=== PATIENT | female | born 1970 | race Caucasian/White ===

== ENCOUNTER 2023-10-02 09:59 | Emergency (ER) | payer OTHER, SELFPAY ==
[2023-10-02 10:00] VITALS: BP 145/81
[2023-10-02 10:29] LABS: Urine Albumin Negative (Neg - Trace); Urine Bilirubin Negative (Negative); Urine Character Clear (Clear); Urine Color Yellow; Urine Glucose Negative (Negative); Urine Ketone Negative (Negative); Urine Leukocyte Negative (Negative); Urine Nitrite Negative (Negative); Urine Occult Blood Trace (Negative); Urine Specific Gravity 1.005 (<1.030); Urine Urobilinogen Negative (Neg - 1+)
[2023-10-02 10:40] LABS: Urine Squamous Cell >30 /LPF (Few)
[2023-10-02 10:41] LABS: Urine Bacteria Few (Negative); Urine White Cell 0-2 /HPF (0-5)
--- NOTE | 2023-10-02 11:17 | ED.GENMED ---
History of Present Illness
General
Chief Complaint: Urinary Symptoms
Source: patient
Exam Limitations: none
Time Seen by Provider: 10/02/23 11:09
Travel History
Have you had any contact with someone who has COVID-19?: No
Do you have any symptoms of coronavirus? Fever > 100 degrees, chills, cough, shortness of breath, sore throat, loss of taste or smell, muscle aches, or headache?: No
History of Present Illness
History of Present Illness:
53-year-old female presents with persistent urinary symptoms since 5 days ago now associated with aches fatigue intermittent chills. She notes bilateral comfort and lower abdominal discomfort. She has remote history of kidney infection requiring
IV antibiotics. She typically healthy otherwise. She denies any visible blood in the urine. No history of kidney stone. No other complaints at this time
Phy Exam
Physical Exam
Physical Exam:
General: Well-appearing female no acute respiratory distress
HEENT: Normocephalic atraumatic
Heart: Regular rate and rhythm no murmurs
Lungs: Clear to auscultation bilaterally no wheezing
Abdomen is soft mildly tender to the suprapubic region and lower quadrants bilaterally. There is also mild costovertebral angle tenderness bilaterally
Extremities: No cyanosis
Course
Orders/Labs/Results
Orders:
Orders
10/02/23 10:16
Urinalysis Reflex To Culture Urgent
Date Specimen was Collected: 10/02/23
Time Specimen was Collected: 10:07
Urine Microscopic Reflex Cult Urgent
10/02/23 11:16
CT Abd/pelvis W Iv Cont Urgent
Comment:
Reason For Exam: flank pain, urinary symptoms, fever
10/02/23 11:29
COVID-19 Antigen Urgent
Source: Nasal Swab
Complete Blood Count/With Diff Urgent
Comprehensive Metabolic Panel Urgent
Blood Culture Q30M
AZAR Source: Blood/Venous
Specimen Description:
Blood Culture Q30M
AZAR Source: Blood/Venous
Specimen Description:
Abnormal Lab Results
10/02/23 10/02/23
10:16 11:29
MCH 33.1 H pg
(27.0-31.0)
Ur Occult Blood Reflex Trace A
(Negative)
Urine RBC 7-10 A /HPF
(0-2)
Urine Bacteria (Reflex) Few A
(Negative)
10/02/23 11:29
10/02/23 11:29
Vital Signs
Initial and Last Documented VS:
Initial Vital Signs
Temp Pulse Resp BP Pulse Ox
98.1 F 63 18 145/81 95
10/02/23 10:00 10/02/23 10:00 10/02/23 10:00 10/02/23 10:00 10/02/23 10:00
Last Documented Vital Signs
Temp Pulse Resp BP Pulse Ox
98.1 F 63 18 145/81 95
10/02/23 10:00 10/02/23 10:00 10/02/23 10:00 10/02/23 10:00 10/02/23 10:00
MDM/Problems Addressed
Differential Diagnosis Includes:
Urinary symptoms with lower abdominal and flank pain. Consider UTI versus pyelonephritis versus diverticulitis. Will check labs COVID test given the aches and fever. Blood cultures and CT
*Critical Care Note
Total Time (30-74mins, 75-104mins- exclusive of procedures): Not Applicable
Update Note
Update Note:
CT negative for acute finding. Labs reviewed without finding. COVID-negative. Patient still has urinary symptoms. Suspect possible UTI. Will switch from Macrobid to cefdinir. Stable for discharge. No indication for admission
ED Attending Note
-
Portions of this chart may have been created with voice recognition software.� Occasional wrong word or��sound alike� substitutions may have occurred due to the inherent limitations of voice recognition software.
Discharge Plan
Departure
Patient Disposition: Home (Routine Discharge)
Date of Disposition: 10/02/23
Time of Disposition: 13:48
Patient with high blood pressure during this ER visit?: No
Discharge Problem:
UTI (urinary tract infection)
Instructions: Urinary Tract Infection, Adult (DC)
Prescriptions:
New
cefdinir 300 mg capsule
300 mg PO BID Qty: 14 0RF
No Action
meclizine 25 mg tablet
25 mg PO TID PRN (Reason: dizziness) Qty: 10 0RF
Activity Restrictions/Additional Instructions:
Please continue to hydrate at home. Take antibiotics as directed. Return for worsening symptoms otherwise follow-up with family doctor
Interventions
Interventions:
*Risk Screen - Suicide Last Done: 10/02/23 11:31
*General Assessment Last Done: 10/02/23 11:31
*Neglect/Abuse Screening Last Done: 10/02/23 11:31
ED- Fall Risk Assessment Last Done: 10/02/23 12:07
*ED COVID-19 Vaccine History Last Done: 10/02/23 11:31
ED-Female Genitourinary Assessment Last Done: 10/02/23 11:31
Discharge Date and Time
Print Language: PRYDEINIG
[2023-10-02 11:49] LABS: % Basophils 0.7 % (0-2); % Immature Granulocytes 0.3 % (0-0.5); % Lymphocytes 23.2 % (20.5-51.1); % Monocytes 5.2 % (1.7-9.3); % Neutrophils 68.6 % (42.2-75.2); Absolute Basophils 0.1 10^3/uL (0-0.2); Absolute Eosinophils 0.2 10^3/uL (0-0.7); Absolute Lymphocytes 1.8 10^3/uL (1.2-3.4); Absolute Monocytes 0.4 10^3/uL (0.1-0.6); Absolute Neutrophils 5.3 10^3/uL (1.4-6.5); Hematocrit 44.8 % (37.0-47.0); Hemoglobin 15.6 g/dL (12.0-16.0); Mean Corp Hgb Conc. 34.8 g/dL (33.0-37.0); Mean Corpuscular Hgb 33.1 pg (27.0-31.0); Mean Corpuscular Volume 95.1 fL (81.0-99.0); Mean Platelet Volume 9.4 fL (7.4-10.4); Nucleated Red Blood Cells % 0 %; Platelet Count 299 10^3/uL (130-400); Red Blood Cell Count 4.71 10^6/uL (4.20-5.40); White Blood Cell Count 7.7 10^3/uL (4.8-10.8)
[2023-10-02 12:01] LABS: ALT (SGPT) 18 U/L (0-35); AST (SGOT) 19 U/L (14-36); Alkaline Phosphatase 97 U/L (38-126); Blood Urea Nitrogen 17 mg/dl (7-17); Calcium 9.8 mg/dl (8.4-10.2); Carbon Dioxide 24 mmol/L (22-30); Chloride 107 mmol/L (98-107); Glucose 94 mg/dl (70-99); Potassium 4.5 mmol/L (3.5-5.1); Sodium 136 mmol/L (135-145); Total Bilirubin 0.4 mg/dl (0.2-1.3); Total Protein 7.1 g/dl (6.3-8.2); eGFR > 60.00
[2023-10-02 12:14] LABS: COVID-19 Antigen Negative (Negative)
[2023-10-02 14:00] VITALS: BP 141/72
== END 2023-10-02 14:07 | disposition home or self-care (01) ==
LOC: EMR 09:59
PROVIDERS: Physician Assistant; EMERGENCY PHYSICIAN Emergency Medicine
DX: N39.0 Urinary tract infection, site not specified (principal); Z87.440 Personal history of urinary (tract) infections
CPT/HCPCS: 99283; 74177; 80053; 81003; 81015; 85025; 87040; 87811; Q9967

== ENCOUNTER → 2023-11-23 16:33 | Outpatient (REF) | payer OTHER, SELFPAY | LOC: WDC 16:33 | PROVIDERS: ATTENDING PHYSICIAN Nurse Practitioner Family | DX: Z12.31 Encounter for screening mammogram for malignant neoplasm of breast (principal) | CPT/HCPCS: 77063; 77067 ==

== ENCOUNTER → 2024-12-14 16:32 | Outpatient (REF) | payer OTHER, SELFPAY | LOC: WDC 16:32 | PROVIDERS: ATTENDING PHYSICIAN Nurse Practitioner Family | DX: Z12.31 Encounter for screening mammogram for malignant neoplasm of breast (principal) | CPT/HCPCS: 77063; 77067 ==

== ENCOUNTER 2025-01-10 12:09 | Emergency (ER) | payer OTHER, SELFPAY ==
[2025-01-10 12:21] VITALS: BP 155/91
[2025-01-10 12:49] LABS: Hematocrit 44.8 % (37.0-47.0); Hemoglobin 15.3 g/dL (12.0-16.0); Mean Corp Hgb Conc. 34.2 g/dL (33.0-37.0); Mean Corpuscular Volume 93.7 fL (81.0-99.0); Nucleated Red Blood Cells % 0 %; Platelet Count 275 10^3/uL (130-400); Red Cell Dist. Width 13.5 % (11.5-14.5)
[2025-01-10 12:59] LABS: ALT (SGPT) 16 U/L (0-35); AST (SGOT) 17 U/L (14-36); Albumin 4.2 g/dl (3.5-5.0); Alkaline Phosphatase 78 U/L (38-126); Blood Urea Nitrogen 18 mg/dl (7-17); Calcium 9.7 mg/dl (8.4-10.2); Carbon Dioxide 27 mmol/L (22-30); Chloride 106 mmol/L (98-107); Glucose 103 mg/dl (70-99); Potassium 4.5 mmol/L (3.5-5.1); Sodium 136 mmol/L (135-145); Total Protein 7.3 g/dl (6.3-8.2); eGFR > 60.00
[2025-01-10 16:17] VITALS: BP 144/69
--- NOTE | 2025-01-10 16:22 | ED.GENMED ---
History of Present Illness
General
Chief Complaint: Heart Rate Problem
Time Seen by Provider: 01/10/25 16:09
History of Present Illness
History of Present Illness:
TIME OF INITIAL EVALUATION
- 4:20 PM
REVIEW OF OLD RECORDS
- The patient has a history of GERD, anxiety. I reviewed records, the patient was seen with UTI 1 year ago.
Note:
CHIEF COMPLAINT(S)
Palpitations and chest and forehead tightness.
HISTORY OF PRESENT ILLNESS
The patient is a 54-year-old female who presented with complaints of palpitations, characterized as a pounding sensation in her chest, which began last night. This was not accompanied by an increase in heart rate. This morning, at approximately
10:30 AM, the patient experienced tightening in the forehead and chest while at work. She reports the symptoms have mildly improved but still experiences persistent head tightness and a slight headache. She describes the palpitations as a 'constant
fluttering' in her heart. The patient noted a medication adjustment as she was advised by her pharmacist to take her medications, amitriptyline and sertraline, at different times rather than concurrently as she had been doing for over 20 years. She
implemented this change on , with the onset of symptoms starting on Thursday.
SOCIAL HISTORY
The patient has been managing medication changes, which have potentially impacted her symptoms.
MEDICATIONS
Amitriptyline and sertraline, recently adjusted to be taken separately per pharmacy advice.
REVIEW OF SYSTEMS
- Cardiovascular: Palpitations described as a pounding sensation.
- Neurological: Tightness in forehead, slight headache reported.
- Chest: Tightness in the chest noted today.
PHYSICAL EXAM
General: Alert, no acute distress.
Skin: Warm, dry.
Head: Normocephalic, atraumatic.
Neck: Supple, trachea midline.
Eye Ears, Nose, Mouth and Throat: Oral mucosa moist.
Cardiovascular: Normal peripheral perfusion, No edema. Heart rate observed at 56-60 bpm, described as a normal rhythm.
Respiratory: Respirations are non-labored.
Gastrointestinal: Abdomen nondistended.
Back: Normal range of motion, Normal alignment.
Musculoskeletal: Normal range of motion, normal strength.
Neurological: Alert and oriented to person, place, time, and situation, No focal neurological deficit observed.
Psychiatric: Cooperative, appropriate mood & affect.
PLAN
- Review blood work results and evaluation.
- Consider potential medication interaction between amitriptyline and sertraline.
- Monitor ECG findings, which currently appear normal.
- Follow-up consultation for further evaluation if symptoms persist.
DIFFERENTIAL DIAGNOSIS
The Differential Diagnosis includes, in no particular order and is not limited to:
1. Medication Interaction
2. Anxiety
3. Sinus Tachycardia
4. Hypertension
5. Hyperthyroidism
6. Anemia
7. Electrolyte Imbalance
8. Atrial Fibrillation
9. Coronary Artery Disease
10. Mitral Valve Prolapse
RADIOLOGY
- No clear indication for imaging at this time. The patient has a normal neurologic examination.
EKG
- Sinus 61, normal axis, normal intervals.
LABS
- CBC and chemistries unremarkable, TSH normal. Troponin unremarkable.
UPDATE
-SUMMARY OF ENCOUNTER
The patient, a 54-year-old female, presented to the emergency department experiencing palpitations, described as a constant fluttering, along with tightness in the forehead and chest. The symptoms emerged shortly after a modification in her
medication regimen of amitriptyline and sertraline, which were advised to be taken separately. The patient underwent blood work and ECG, both of which returned normal results, ruling out cardiovascular events such as a heart attack. Her blood
pressure was noted to be slightly elevated but not significantly problematic. Given these findings, it was suggested that the medication adjustment might be re-evaluated, potentially returning to the previous concurrent dosing schedule.
DISPOSITION
Discharge.
ASSESSMENT
The symptoms may be attributed to medication interaction following the adjustment of her amitriptyline and sertraline dosing schedule.
PLAN
The patient is advised to consider switching back to taking amitriptyline and sertraline together, as previously done, and follow up with her primary care physician.
FOLLOW-UP INSTRUCTIONS
The patient has a follow-up appointment scheduled with her primary doctor tomorrow.
MEDICAL DECISION MAKING
-Complexity of Data Reviewed: Chronic conditions affecting care from past medication management. Differential Diagnosis includes:
1. Medication Interaction
2. Anxiety
3. Sinus Tachycardia
4. Hypertension
5. Hyperthyroidism
6. Anemia
7. Electrolyte Imbalance
8. Atrial Fibrillation
9. Coronary Artery Disease
10. Mitral Valve Prolapse
-Data:
Category 1
Non-emergency department records reviewed, if applicable. External record reviewed: I reviewed the patients outpatient pharmacy records.
Category 2
My independent interpretation of ECG was normal.
-Risk:
Consideration of Admission/Observation: Escalation of care including admission/observation was considered given the complexity and risk of the patients presenting complaint, exam findings, and/or their underlying comorbidities. However, ultimately I
feel the patient is safe for outpatient management with close follow-up. Reasoning: Work-up reassuring, does not reveal any acute life/organ-threatening processes, patients symptoms well controlled upon reevaluation, reexamination is reassuring,
vitals are stable, patient agreeable with discharge, reliable for follow-up.
Care significantly affected by Social Determinants of Health: Medication changes with potential impacts noted in the patients social history.
DIAGNOSIS
Chest discomfort/palpitations
Possible medication interaction side effects
Phy Exam
Physical Exam
Physical Exam:
See HPI
Course
Orders/Labs/Results
Orders:
Orders
01/10/25 12:10
ECG [Electrocardiogram (*1)] Urgent
Reason for Study: Palpitations
01/10/25 12:11
EKG- Treatment ONCE
01/10/25 12:34
CMP [Comprehensive Metabolic Panel] Urgent
Complete Blood Count/With Diff Urgent
TSH Reflex To Free T4 Urgent
01/10/25 16:33
Troponin I Urgent
Abnormal Lab Results
01/10/25
12:34
MCH 32.0 H pg
(27.0-31.0)
BUN 18 H mg/dl
(7-17)
Glucose 103 H mg/dl
(70-99)
01/10/25 12:34
01/10/25 12:34
Vital Signs
Initial and Last Documented VS:
Initial Vital Signs
Temp Pulse Resp BP Pulse Ox
36.8 C 71 16 155/91 98
01/10/25 12:21 01/10/25 12:21 01/10/25 12:21 01/10/25 12:21 01/10/25 12:21
Last Documented Vital Signs
Temp Pulse Resp BP Pulse Ox
36.8 C 59 12 144/69 98
01/10/25 12:21 01/10/25 16:18 01/10/25 16:18 01/10/25 16:17 01/10/25 16:25
*Pulse Oximetry
SaO2: 98
Oxygen Mode of Delivery: Room air
Patient hypoxic: no
*Critical Care Note
Total Time (30-74mins, 75-104mins- exclusive of procedures): Not Applicable
ED Attending Note
-
Portions of this chart may have been created with voice recognition software.� Occasional wrong word or��sound alike� substitutions may have occurred due to the inherent limitations of voice recognition software.
Discharge Plan
Departure
Prescriptions:
No Action
meclizine 25 mg tablet
25 mg PO TID PRN (Reason: dizziness) Qty: 10 0RF
cefdinir 300 mg capsule
300 mg PO BID Qty: 14 0RF
Referrals:
UNKNOWN - PT DOES,NOT KNOW [Unknown Provider]
Interventions
Interventions:
*Risk Screen - Suicide Last Done: 01/10/25 12:21
*General Assessment Last Done: 01/10/25 16:25
*Neglect/Abuse Screening Last Done: 01/10/25 12:21
*ED- Fall Risk Assessment Last Done: 01/10/25 16:25
*ED COVID-19 Vaccine History Last Done: 01/10/25 12:21
ED- Cardiac Assessment Last Done: 01/10/25 16:25
ED- Pulmonary Assessment Last Done: 01/10/25 16:25
Discharge Date and Time
Print Language: JAPANESE
[2025-01-10 16:24] VITALS: BMI 34.2
[2025-01-10 17:21] LABS: Troponin I < 0.012 ng/ml
[2025-01-10 17:32] VITALS: BP 147/81
== END 2025-01-10 18:08 | disposition home or self-care (01) ==
LOC: EMR 12:09
PROVIDERS: Emergency Medicine; EMERGENCY PHYSICIAN Emergency Medicine; FAMILY PHYSICIAN Family Medicine
DX: R00.2 Palpitations (principal); K21.9 Gastro-esophageal reflux disease without esophagitis; F41.9 Anxiety disorder, unspecified; Z87.440 Personal history of urinary (tract) infections
CPT/HCPCS: 99283; 80053; 84443; 84484; 85025; 93005

== ENCOUNTER → 2025-03-09 10:51 | Outpatient (REF) | payer OTHER, SELFPAY | LOC: RAD 10:51 | PROVIDERS: ATTENDING PHYSICIAN Nurse Practitioner Family | DX: M79.605 Pain in left leg (principal) | CPT/HCPCS: 93971 ==

== ENCOUNTER → 2025-06-12 14:25 | Outpatient (REF) | payer OTHER, SELFPAY | LOC: RAD 14:25 | PROVIDERS: ATTENDING PHYSICIAN Obstetrics & Gynecology; FAMILY PHYSICIAN Family Medicine | DX: R10.20 Pelvic and perineal pain unspecified side (principal) | CPT/HCPCS: 76830; 76856 ==